=== PATIENT | female | born 1995 | race Caucasian/White ===

== ENCOUNTER 2024-01-08 12:29 | Emergency (ER) | payer SELFPAY ==
--- NOTE | 2024-01-08 12:44 | ED.FEMALEGU ---
HPI - Female Genitourinary General Chief complaint: Urogenital-Female Stated complaint: burning upon urination Time Seen by Provider: 01/08/24 13:07 Source: patient and director of sustainability (serbian) Mode of arrival: ambulatory Limitations: language barrier (serbian speaking) History of Present Illness ED Provider: VANDANA BUSTILLO PA-C HPI Narrative: 28-year-old Iranian-speaking female with no significant past medical history presents to the ED today for evaluation of dysuria x7 days. Reports one episode of hematuria 5 days ago. No further episodes since. Admits to associated suprapubic abdominal discomfort and lower back pain. Admits to chance of . Her LMP was approximately 2 months ago. Admits to taking an emergency contraceptive pill 2 months ago and is concerned this may be related to the delay. Currently on OCP. She does not have a PCP or research test engine operator to follow up with. Denies any vaginal bleeding or discharge. Denies fever, chills, flank pain, N/V. Denies history of UTI. Denies history of renal stones. She also endorses rectal itching/ discomfort. Occasional bleeding. Admits to history of external hemorrhoids - states they are acting up. Requesting a cream for treatment. Denies pain. Denies discharge. Normal BM. Related Data Previous Rx's ?Medication ?Instructions ?Recorded hydrocortisone 1 % topical cream 1 appl topical BID PRN itching 01/08/24 (Preparation H Hydrocortisone) #28.4 grams nitrofurantoin 100 mg PO BID 7 days #14 caps 01/08/24 monohydrate/macrocrystals 100 mg capsule Allergies Allergy/AdvReac Type Severity Reaction Status Date / Time No Known Allergies Allergy Verified 01/08/24 12:50 Review of Systems Review of Systems: Constitutional: No fever, chills, fatigue, night sweats, weight changes ENT/Mouth: No ear pain, hearing loss, nasal congestion, sinus pain, rhinorrhea, sore throat Eyes: No eye pain, swelling, redness, vision changes, discharge Cardio: No chest pain, palpitations, [place], orthopnea, peripheral edema Pulm: No SOB, cough, sputum, wheezing, dyspnea, hemoptysis GI: No nausea, vomiting, hematemesis, abdominal pain, diarrhea, constipation, hematochezia, melena : No irregular bleeding, frequency, urgency, hesitancy, hematuria, flank pain, urinary flow changes, urinary incontinence or retention, +dysuria MSK: No back pain, neck pain, joint pain, myalgias Skin: No lesions, rashes Neuro: No weakness, numbness, paresthesias, LOC, dizziness, headache Psych: No anxiety/panic, depression, SI/HI, AH/VH All other systems reviewed and are negative. [facility] Past Medical History Attestation statement: The following information was validated with the patient. Source: old records reviewed and nursing notes reviewed Social History Social History Advance Directives: No Advance Directives Information Provided: No Do you have a plan to hurt others: No Plan Physical Exam Vital Signs: Vital Signs: Last Vital Signs Temp 97.8 F 01/08/24 16:00 Pulse 78 01/08/24 16:00 Resp 18 01/08/24 16:00 BP 118/73 01/08/24 16:00 Pulse Ox 100 01/08/24 16:00 O2 Del Method Room Air 01/08/24 16:00 BMI result Body Mass Index 25.2 vital signs stable, afebrile General: Well appearing, in no acute distress. Skin: Warm, dry, intact. No rashes or lesions. Head: Normocephalic, atraumatic. EENT: Hearing is intact b/l. Conjunctiva clear. PERRLA. EOM intact. Moist mucous membranes.? Neck: Supple without LAD Cardiac: Chest wall symmetric. RRR Lungs: Normal respiratory effort without accessory muscle use. CTA bilaterally. Abdomen: Soft, nontender, nondistended, no rebound tenderness or guarding. Positive bowel sounds x4. No CVAT bilaterally. Back: No midline spinous or paraspinal tenderness. No step off deformity. Ext: Upper and lower extremities atraumatic, without tenderness, deformity, swelling or erythema. Full ROM throughout. Neuro: AOx3. Normal speech. Ambulating with steady gait. Psych: Appropriate mood and affect. Responds appropriately to questions. Course Course Course Narrative: This is a Rapid Medical Exam performed in triage by Cindy Matthews PA-C. Full HPI, ROS and PE to be performed by primary ED provider. 28 yo F presenting to the ED c/o dysuria & hematuria x1 week. denies vaginal bleeding or d/c. LMP 2 mos ago. States feels like she is going to get her period however has not, also reports low back pain, NO flank pain. Denies abd pain, N/V PE: ambulating w/steady gait, nontoxic appearing Plan: UA, Ur preg Reevaluation(s) Reevaluation #1: CBC with leukocytosis to 13.2. No left shift. No anemia. H&H stable. Chemistry without acute electrolyte abnormality requiring intervention. No LUIS. Normal liver function. Lipase WNL. Urine positive for infection and blood, likely secondary to cystitis. Urine negative. negative for gonorrhea, chlamydia. > will send Macrobid to pharmacy for treatment of UTI. Patient has remained stable throughout ED visit today. Discussed worrisome signs and symptoms and when to return to the ED. All questions answered at this time. Patient is agreeable with disposition and stable for discharge. Medical Decision Making Medical Decision Making [facility] Narrative: 28-year-old Iranian-speaking female with no significant past medical history presents to the ED today for evaluation of dysuria x7 days. Vital signs stable. Afebrile. She is nontoxic-appearing and in no acute distress. On exam, abdomen is soft, nondistended, nontender to palpation. There is no rebound tenderness or guarding. No CVAT bilaterally. Skin warm, dry, intact no rashes. Pelvic exam deferred. Differential diagnosis includes urinary tract infection, renal colic, nephrolithiasis, STD, IUP Plan for urinalysis, urine test, basic blood work, re-evaluation. Differential Diagnosis Differential Diagnoses: The differential diagnosis associated with the presentation includes As above Admission/Observation Not indicated Lab Data [facility] Lab Attestation statement: I reviewed the patient's lab results. As above 01/08/24 14:31 01/08/24 14:31 Labs: Lab Results 01/08/24 01/08/24 Range/Units 12:59 14:31 WBC 13.2 H (4.8-10.8) X10*3/uL RBC 4.25 (4.20-5.50) X10*6/uL Hgb 13.4 (12.0-16.0) g/dl Hct 39.7 (37.0-47.0) % MCV 93.4 (80.0-98.0) fL MCH 31.5 (27.0-33.0) pg MCHC 33.8 (31.0-35.0) g/dl RDW 12.5 (11.0-16.0) % Plt Count 283 (160-400) X10*3/uL MPV 9.9 (9.4-12.3) fL Immature Gran % (Auto) 0.4 (0.0-0.4) % Neut % (Auto) 72.9 (45-73) % Lymph % (Auto) 15.6 L (20-40) % [place] % (Auto) 9.7 (2-11) % Eos % (Auto) 1.2 (0-4) % Baso % (Auto) 0.2 (0-2) % Lymph # (Auto) 2.1 (1.2-4.9) X10*3/uL [place] # (Auto) 1.3 H (0.1-1.2) X10*3/uL Eos # (Auto) 0.2 (0.0-0.4) X10*3/uL Baso # (Auto) 0.0 (0.0-0.2) X10*3/uL Abs Immat Gran (auto) 0.05 H (0.00-0.03) X10*3/uL Absolute Neuts (auto) 9.6 H (2.0-8.3) x10*3/uL Absolute Nucleated RBC 0.000 (0.0-0.012) X10*3/uL Nucleated RBC % (auto) 0.0 (0.0-0.2) /100WBC Sodium 138 (135-145) mmol/L Potassium 4.1 (3.3-5.1) mmol/L Chloride 106 (96-108) mmol/L Carbon Dioxide 24 (22-29) mmol/L Anion Gap 12 (12-20) BUN 8 L (9-16) mg/dL Creatinine 0.65 (0.5-1.4) mg/dL Estim Creat Clear Calc 96.9 Estimated GFR > 60 Random Glucose 87 (60-115) mg/dL Calcium 9.3 (8.4-10.2) mg/dL Magnesium 2.0 (1.6-2.6) mg/dL Total Bilirubin 0.7 (0.0-1.0) mg/dL AST 25 (5-31) U/L ALT 26 (0-31) U/L Alkaline Phosphatase 97 (39-117) U/L Total Protein 7.8 (6.5-8.0) g/dL Albumin 4.4 (3.5-5.0) g/dL Lipase 19 (8-78) U/L Urine Color Yellow Urine Appearance Clear Urine pH 8.0 (5.0-9.0) Ur Specific [place] 1.010 (1.005-1.025) Urine Protein 30 (1+) H (Neg-Trace) mg/dL Urine Glucose (UA) Negative (Negative) mg/dL Urine Ketones Negative (Negative) mg/dL Urine Blood Moderate (2+) H (Negative) Urine Nitrite Negative (Negative) Ur Leukocyte Esterase Large (3+) H (Negative) Urine RBC >20 H (0-2) /HPF Urine WBC >50 H (0-5) /HPF Ur Squamous Epith Cells 0-2 (0-2) /HPF Urine Bacteria None Seen (None Seen) Hyaline Casts 0-2 (0-2) /LPF Urine Test NEGATIVE (NEGATIVE) Chlam trachomat DNA PCR NOT DETECTED (Not Detect.) N.gonorrhoeae DNA (PCR) NOT DETECTED (Not Detect.) External Record Review External record reviewed: Inpatient record Prescription Management I considered prescription management with: Pain Medication (Tylenol, Motrin), Antibiotic (Nitrofurantoin) and Other (Preparation H) Social Determinants Patient?s care significantly limited by Social Determinants of Health including: Other Social Determinant of Health Critical Care Time Critical Care Time Critical Care Time: No Discharge Plan Discharge Clinical Impression: Urinary tract infection, External hemorrhoid Patient Disposition: Home, Self-Care Instructions: Hemorrhoids (ED), Urinary Tract Infection in Women (ED) Additional Instructions: Your blood work today is reassuring. Your urine is positive for infection. Your urine is negative. You tested negative for gonorrhea and chlamydia. Treatment for your urinary tract infection as with antibiotics. Nitrofurantoin is an antibiotic that has been sent to your pharmacy. Take this as prescribed and do not miss any doses. You must complete the entire course of antibiotics. If you do not, there is a risk of the infection coming back or worsening. You may take tylenol/ motrin at home for pain/ discomfort as needed. I have also sent a cream to your pharmacy for your external hemorrhoids. Please follow-up with your primary care provider as needed. If you do not have a primary care provider, a referral has been provided to you. Please call them to establish care. They will not call you. A referral to a research test engine operator has also been provided to you. Please call them to establish care. They will not call you. If you develop a fever or new/ worsening symptoms call 911 or come back to the ER for further evaluation. Prescriptions: New nitrofurantoin monohyd/m-cryst 100 mg capsule 100 mg PO BID 7 Days Qty: 14 0RF Rx Instructions: must administer with a meal/food hydrocortisone [Preparation H Hydrocortisone] 1 % cream 1 appl topical BID PRN (Reason: itching) Qty: 28.4 0RF Referrals: [facility] [place] Family Medicine [Provider Group] [facility] [place] Primary Care, Dorian [Provider Group] [facility] [place] Primary Care,Juan [Provider Group] [facility] [place] Women's Services [Provider Group] Interventions: ED Discharge Assessment Last Done: 01/08/24 16:00 Discharge Date/Time: 01/08/24 16:00 Print Language: Iranian
[2024-01-08 12:46] VITALS: BP 132/66; PULSE 90; RESP 18; TEMP 36.4; O2SAT 100; BMI 25.2
[2024-01-08 13:07] LABS: Appearance Urine Clear; Color Urine Yellow; Glucose Urine UA Negative (Negative); Leukocyte Esterase Urine Large (3+) (Negative); Nitrite Urine Negative (Negative); UMIC TRIGGER UACC YES; Urine Blood Moderate (2+) (Negative); Urine Ketones Negative (Negative); Urine Protein 30 (1+) mg/dL (Neg-Trace)
[2024-01-08 13:18] LABS: UPreg QC Valid YES; Urine Pregnancy NEGATIVE (NEGATIVE)
[2024-01-08 14:17] LABS: Bacteria Urine None Seen (None Seen); Hyaline Casts Urine 0-2 /LPF (0-2); RBC Urine >20 /HPF (0-2); Squamous Epithelial Cell Urine 0-2 /HPF (0-2); UACC Culture Trigger YES; WBC Urine >50 /HPF (0-5)
[2024-01-08 14:35] LABS: MANUAL DIFF FLAG NO
[2024-01-08 14:43] LABS: Basophils Percent Auto 0.2 % (0-2); Eosinophils Absolute Auto 0.2 X10*3/uL (0.0-0.4); Eosinophils Percent Auto 1.2 % (0-4); Hematocrit 39.7 % (37.0-47.0); Hemoglobin 13.4 g/dl (12.0-16.0); Imm Gran Abs Auto 0.05 X10*3/uL (0.00-0.03); Imm Gran Pct Auto 0.4 % (0.0-0.4); Lymphocytes Absolute Auto 2.1 X10*3/uL (1.2-4.9); Lymphocytes Percent Auto 15.6 % (20-40); Mean Corpuscular HGB Conc 33.8 g/dl (31.0-35.0); Mean Corpuscular Hemoglobin 31.5 pg (27.0-33.0); Mean Corpuscular Volume 93.4 fL (80.0-98.0); Mean Platelet Volume 9.9 fL (9.4-12.3); Monocytes Absolute Auto 1.3 X10*3/uL (0.1-1.2); Monocytes Percent Auto 9.7 % (2-11); Neutrophils Absolute Auto 9.6 x10*3/uL (2.0-8.3); Neutrophils Percent Auto 72.9 % (45-73); Platelet Count 283 X10*3/uL (160-400); Red Blood Count 4.25 X10*6/uL (4.20-5.50); Red Cell Distribution Width 12.5 % (11.0-16.0); White Blood Count 13.2 X10*3/uL (4.8-10.8)
[2024-01-08 14:53] LABS: Alanine Aminotransferase 26 U/L (0-31); Albumin Level 4.4 g/dL (3.5-5.0); Alkaline Phosphatase 97 U/L (39-117); Anion Gap 12 (12-20); Aspartate Amino Transferase 25 U/L (5-31); Bilirubin Total 0.7 mg/dL (0.0-1.0); Blood Urea Nitrogen 8 mg/dL (9-16); Calcium 9.3 mg/dL (8.4-10.2); Carbon Dioxide 24 mmol/L (22-29); Chloride 106 mmol/L (96-108); Creatinine Clr Calc Pharmacy 96.9; Estimated Glomerular Filt Rate > 60; Glucose Random 87 mg/dL (60-115); Lipase 19 U/L (8-78); Potassium 4.1 mmol/L (3.3-5.1); Sodium 138 mmol/L (135-145); Total Protein 7.8 g/dL (6.5-8.0)
[2024-01-08 14:54] LABS: CT PCR NOT DETECTED (Not Detect.); NG PCR NOT DETECTED (Not Detect.)
[2024-01-08 15:47] VITALS: BP 118/73; PULSE 78; RESP 18; TEMP 36.6; O2SAT 100
[2024-01-08 16:00] VITALS: BP 118/73; PULSE 78; RESP 18; TEMP 36.6; O2SAT 100
== END 2024-01-08 16:00 | disposition home or self-care (01) ==
PROVIDERS: Physician Assistant; Physician Assistant Medical; Emergency Provider Emergency Medicine
DX: N39.0 Urinary tract infection, site not specified (principal); K64.4 Residual hemorrhoidal skin tags; M54.50 Low back pain, unspecified
CPT/HCPCS: 36415; 80053; 81001; 81025; 83690; 83735; 85025; 87086; 87088; 87186; 87491; 87591; 99283